=== PATIENT | female | born 1980 | race Caucasian/White ===

== ENCOUNTER 2020-03-02 | Emergency (ER) | payer OTHER ==
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
== END 2020-03-02 16:33 | disposition home or self-care (01) ==
CPT/HCPCS: 99282